=== PATIENT | female | born 1980 | race Caucasian/White ===

== ENCOUNTER 2020-07-18 02:49 | Outpatient (CLI) | payer OTHER, SELFPAY ==
[2020-07-18 08:13] LABS: Hemoglobin A1C 5.3 % (3.8-5.6)
[2020-07-18 09:14] LABS: ALT 31 U/L (14-59); AST 13 U/L (15-37); Alkaline Phosphatase 47 U/L (46-116); Anion Gap 8.2 mmol/L (3-11); BUN 22 mg/dL (7-18); Bilirubin, Total 0.4 mg/dL (0.2-1.0); CO2 25.8 mmol/L (21.0-32.0); Calcium 9.3 mg/dL (8.5-10.1); Calculated LDL 114 mg/dL (<100); Chloride 107 mmol/L (98-107); Cholesterol 178 mg/dL (<200); Glucose 94 mg/dL (74-106); HDL Cholesterol 55 mg/dL (40-60); Potassium 4.3 mmol/L (3.5-5.1); Sodium 141 mmol/L (136-145); TSH (W/Ref FT4) 4.24 uIU/mL (0.36-3.74); Total Protein 6.8 g/dL (6.4-8.2); Triglyceride 46 mg/dL (<150)
[2020-07-18 09:37] LABS: FREE T4 1.12 ng/dL (0.76-1.46)
== END 2020-07-18 03:09 ==
PROVIDERS: PCP Internal Medicine; Visit Provider Obstetrics & Gynecology Gynecology
DX: Z68.34 Body mass index [BMI] 34.0-34.9, adult (principal); R94.6 Abnormal results of thyroid function studies; Z00.00 Encounter for general adult medical examination without abnormal findings
CPT/HCPCS: 36415; 80053; 80061; 83036; 84439; 84443

== ENCOUNTER 2020-10-16 01:51 | Outpatient (CLI) | payer OTHER, SELFPAY ==
[2020-10-16 09:18] LABS: C-Reactive Protein < 0.05 mg/dL (0.0-0.3)
[2020-10-16 09:41] LABS: Ferritin 121 ng/mL (8-252)
[2020-10-18 04:45] LABS: Vitamin D 25 Total 44.1 ng/ml (30-100)
[2020-10-20 10:38] LABS: Testosterone, Total 36 ng/dL (8-60)
[2020-10-31 14:06] LABS: T3,Free 3.5 pg/mL
[2020-10-31 14:11] LABS: Dehydroepiandrosterone (DHEA) 4.4 ng/mL
[2020-10-31 14:13] LABS: Estradiol 52 pg/mL
[2020-10-31 14:14] LABS: Progesterone 3.6 ng/mL
== END 2020-10-16 02:11 ==
PROVIDERS: PCP Internal Medicine; Visit Provider Obstetrics & Gynecology Gynecology
DX: R63.8 Other symptoms and signs concerning food and fluid intake (principal); Z68.34 Body mass index [BMI] 34.0-34.9, adult
CPT/HCPCS: 36415; 82306; 82533; 82627; 84402; 84403; 82626; 82670; 82728; 83525; 84144; 84481; 84482; 86140

== ENCOUNTER 2021-08-26 16:29 | Outpatient (REF) | payer OTHER, SELFPAY ==
--- NOTE | 2021-08-26 14:30 | PAPFT_PTH ---
PATIENT: Hazel Bhatia LOC: [facility] U#:[id number] AGE/SX: 41/F ROOM: RE08/26/[address]: Ankita Hinojosa : 1980 BED: DIS: 08/26/2021 SPEC #: [id number] RECD: 08/26/21 18:36 STATUS: ALVAREZKathleen REQ #: [id number] GUILLERMO: 08/26/21 14:[address]: Ankita Hinojosa DEPT: [facility] Cytology RECD BY: Gerri James ENTERED: 08/26/21 18:37 SP TYPE: PAPFT OTHR DR: Wilian Mckeon Tissues: 1 - CX/ENDOCX FOR PAP SMEARS Procedures: PAP THIN PREP/[facility] Screening Comments: [id number] (UNSATISFACTORY FOR EVALUATION)
== END 2021-08-26 16:30 | disposition home or self-care (01) ==
LOC: LBN 16:29
PROVIDERS: PCP Internal Medicine; Visit Provider Obstetrics & Gynecology Gynecology
DX: Z12.4 Encounter for screening for malignant neoplasm of cervix (principal); R87.618 Other abnormal cytological findings on specimens from cervix uteri
CPT/HCPCS: 88142

== ENCOUNTER 2021-11-01 10:03 | Outpatient (REF) | payer OTHER, SELFPAY ==
--- NOTE | 2021-11-01 08:30 | PAPFT_PTH ---
PATIENT: Hazel Bhatia LOC: [facility]#:[id number] AGE/SX: 41/F ROOM: RE11/01/[address]: Ankita Hinojosa : 1980 BED: DIS: 11/01/2021 SPEC #: [id number] RECD: 11/02/21 11:52 STATUS: DELVIN REEstelle #: [id number] GUILLERMO: 11/01/21 08:[address]: Ankita Hinojosa DEPT: [facility] Cytology RECD BY: Claudette Ahumada ENTERED: 11/02/21 11:53 SP TYPE: PAPFT OTHR DR: Wilian Mckeon Tissues: 1 - CX/ENDOCX FOR PAP SMEARS Procedures: PAP THIN PREP/[facility] Screening HPV DNA PROBE Comments: [id number]
== END 2021-11-01 10:04 | disposition home or self-care (01) ==
LOC: LBN 10:03
PROVIDERS: PCP Internal Medicine; Visit Provider Obstetrics & Gynecology Gynecology
DX: Z12.4 Encounter for screening for malignant neoplasm of cervix (principal); Z11.51 Encounter for screening for human papillomavirus (HPV)
CPT/HCPCS: 88142; 87624

== ENCOUNTER 2021-12-13 04:06 | Outpatient (CLI) | payer OTHER, SELFPAY ==
[2021-12-13 08:37] LABS: TSH (W/Ref FT4) 3.84 uIU/mL (0.36-3.74)
[2021-12-13 08:54] LABS: FREE T4 1.14 ng/dL (0.76-1.46)
== END 2021-12-13 04:07 | disposition home or self-care (01) ==
LOC: LBO 04:06
PROVIDERS: PCP Internal Medicine; Visit Provider Obstetrics & Gynecology Gynecology
DX: R68.89 Other general symptoms and signs (principal)
CPT/HCPCS: 36415; 84439; 84443

== ENCOUNTER 2022-02-25 02:45 | Outpatient (CLI) | payer OTHER, SELFPAY ==
[2022-02-25 08:58] LABS: TSH (W/Ref FT4) 3.34 uIU/mL (0.36-3.74)
== END 2022-02-25 02:46 | disposition home or self-care (01) ==
LOC: LBO 02:45
PROVIDERS: PCP Internal Medicine; Visit Provider Obstetrics & Gynecology Gynecology
DX: R94.5 Abnormal results of liver function studies; R79.89 Other specified abnormal findings of blood chemistry
CPT/HCPCS: 36415; 84443

== ENCOUNTER 2022-08-27 11:50 | Outpatient (CLI) | payer OTHER, SELFPAY ==
--- NOTE | 2022-08-27 11:40 | DI.RAD_ITS ---
Exam(s) XR FOOT LT COMPLETE EXAM: XR FOOT LT COMPLETE CLINICAL HISTORY: LEFT FOOT PAIN-M79.672 TECHNIQUE: COMPARISON: No exams were available for comparison FINDINGS: Three views were obtained. There are small enthesophytes at the sites of attachment of plantar fasci a and Achilles tendon on the calcaneus. No other bony or soft tissue abnormality seen. Alignment ap pears within normal limits. IMPRESSION: RADIATION DOSE DELIVERED: Total DLP
== END 2022-08-27 12:10 ==
LOC: DI 12:03
PROVIDERS: PCP Internal Medicine; Visit Provider Family Medicine
DX: M77.32 Calcaneal spur, left foot (principal)
CPT/HCPCS: 73630

== ENCOUNTER 2022-12-25 02:33 | Outpatient (CLI) | payer OTHER, SELFPAY ==
[2022-12-25 11:25] LABS: Hemoglobin A1C 5.2 % (<5.7)
[2022-12-25 11:32] LABS: Calculated LDL 108 mg/dL (<100); Cholesterol 194 mg/dL (<200); HDL Cholesterol 80 mg/dL (40-60); TSH (W/Ref FT4) 2.38 uIU/mL (0.36-3.74); Triglyceride 34 mg/dL (<150)
== END 2022-12-25 02:34 | disposition home or self-care (01) ==
LOC: LBO 02:33
PROVIDERS: Obstetrics & Gynecology Gynecology; PCP Internal Medicine; Visit Provider Internal Medicine
DX: E03.9 Hypothyroidism, unspecified (principal); R79.89 Other specified abnormal findings of blood chemistry; R03.0 Elevated blood-pressure reading, without diagnosis of hypertension; E66.8 Other obesity; Z68.34 Body mass index [BMI] 34.0-34.9, adult
CPT/HCPCS: 36415; 80061; 83036; 84443

== ENCOUNTER 2023-04-29 01:50 | Outpatient (CLI) | payer OTHER, SELFPAY ==
--- NOTE | 2023-04-29 08:52 | DI.MAMMO_ITS ---
Exam(s) MAMMO SCREENING EXAM: MAMMO SCREENING CLINICAL HISTORY: screening,z12.39 TECHNIQUE: Mammograms were interpreted according to the usual protocol including computer analysis w [employer] CAD system, tomosynthesis and C-view imaging. COMPARISON: None. Baseline examination. FINDINGS: The breasts are composed of scattered fibroglandular densities, Breast Density category B. No suspicious masses or suspicious microcalcifications are seen. No skin thickening or abnormal axillary lymph nodes are seen. IMPRESSION: BI-RADS Category 1, Negative mammogram Yearly screening mammography is recommended. Breast Density - Category B, scattered fibroglandular densities. A negative radiographic report should not delay biopsy if a dominant or clinically suspicious mass is present. Up to ten percent of cancers are not identified on mammography. A negative report may reinforce clinical impression. Adenosis and dense breasts may obscure an underlying neoplasm. False positive reports average 6 to 10%. Patient will receive a letter notifying them of these results.
== END 2023-04-29 02:10 ==
LOC: DI 01:51
PROVIDERS: PCP Internal Medicine; Visit Provider Obstetrics & Gynecology Gynecology
DX: Z12.31 Encounter for screening mammogram for malignant neoplasm of breast (principal)
CPT/HCPCS: 77063; 77067

== ENCOUNTER 2024-01-14 04:10 | Outpatient (CLI) | payer OTHER, SELFPAY ==
[2024-01-14 07:52] LABS: TSH (W/Ref FT4) 3.48 uIU/mL (0.36-3.74)
== END 2024-01-14 04:11 | disposition home or self-care (01) ==
PROVIDERS: PCP Internal Medicine; Visit Provider Obstetrics & Gynecology Gynecology
DX: R79.89 Other specified abnormal findings of blood chemistry (principal)
CPT/HCPCS: 36415; 84443

== ENCOUNTER → 2024-05-02 02:28 | Outpatient (CLI) | payer OTHER, SELFPAY ==
--- NOTE | 2024-05-02 06:30 | DI.MAMMO_ITS ---
Exam(s) MAMMO SCREENING EXAM: MAMMO SCREENING CLINICAL HISTORY: screening, Z12.39 TECHNIQUE: Bilateral full field digital CC and MLO mammographic images were obtained with 3D tomosyn thesis and utilizing computer aided detection (CAD). COMPARISON: Available for comparison. FINDINGS: Masses/Architectural Distortion: None seen. Microcalcifications: No suspicious pleomorphic-type are seen. Skin Thickening/Nipple Retraction: None. IMPRESSION: 1. No significant interval change with no specific features of malignancy noted. 2. Unless there is more urgent need, screening mammography is recommended, as per [employer] guidelines. BI-RADS Category 1 - Negative Breast Density - Category B - Scattered areas of fibroglandular density Breast density category C or D implies that the patient has dense breast tissue. Dense breast tissue is very common and is not abnormal but dense breast tissue can make it harder to find cancer on a ma mmogram. Also, dense breast tissue may increase their breast cancer risk. This information about the result of the mammogram report was provided to the patient to raise their awareness. Use this report when you speak with the patient about their risks for breast cancer, which includes their family hist ory. At that time, you may recommend for more screening tests (Ultrasound or MRI) as they might be us eful based on their risk. A negative radiographic report should not delay biopsy if a dominant or clinically suspicious mass is present. Up to ten percent of cancers are not identified on mammography. A negative report may reinforce clinical impression. Adenosis and dense breasts may obscure an underlying neoplasm. False positive reports average 6 to 10%. Patient will receive a letter notifying them of these results.
== END ==
PROVIDERS: PCP Nurse Practitioner Family; Visit Provider Obstetrics & Gynecology Gynecology
DX: Z12.31 Encounter for screening mammogram for malignant neoplasm of breast (principal)
CPT/HCPCS: 77063; 77067

== ENCOUNTER 2025-02-03 15:25 | Outpatient (REF) | payer BC, SELFPAY | END 2025-02-03 15:26 | disposition home or self-care (01) | LOC: LBN 15:25 | PROVIDERS: PCP Nurse Practitioner Family; Visit Provider Obstetrics & Gynecology | DX: Z01.419 Encounter for gynecological examination (general) (routine) without abnormal findings (principal) | CPT/HCPCS: 88142; 87624 ==

== ENCOUNTER 2025-05-24 00:03 | Outpatient (CLI) | payer BC, SELFPAY ==
--- NOTE | 2025-05-24 08:05 | DI.MAMMO_ITS ---
Exam(s) MAMMO SCREENING EXAM: MAMMO SCREENING CLINICAL HISTORY: mammo screening Z12.31 TECHNIQUE: Mammograms were interpreted according to the usual protocol including computer analysis with CAD system, tomosynthesis and C-view imaging. COMPARISON: 2022 and 2023 FINDINGS: The breasts are composed of scattered fibroglandular densities, Breast Density category B. No suspicious masses or suspicious microcalcifications are seen. No skin thickening or abnormal axillary lymph nodes are seen. There has been no significant change from prior exams. IMPRESSION: BI-RADS Category 1, Negative mammogram Yearly screening mammography is recommended. Breast Density - Category B - There are scattered areas of fibroglandular density. Breast density Category C or D implies that the patient has dense breast tissue. Dense breast tissue can make it harder to find cancer on a mammogram. Dense breast tissue is also associated with an increased risk of breast cancer. This information about the result of the mammogram report was provided to the patient to raise their awareness. Use this report when you speak with the patient about their risks for breast cancer, which includes their family history. At that time, you may recommend additional screening tests (Ultrasound or MRI) as these tests may add significant information. A negative radiographic report should not delay biopsy if a dominant or clinically suspicious mass is present. Up to ten percent of cancers are not identified on mammography. A negative report may reinforce clinical impression. Adenosis and dense breasts may obscure an underlying neoplasm. False positive reports average 6 to 10%. Patient will receive a letter notifying them of these results.
== END 2025-05-24 00:23 ==
LOC: DI 00:03
PROVIDERS: PCP Nurse Practitioner Family; Visit Provider Nurse Practitioner Family
DX: Z12.31 Encounter for screening mammogram for malignant neoplasm of breast (principal); R92.323 Mammographic fibroglandular density, bilateral breasts
CPT/HCPCS: 77063; 77067